=== PATIENT | female | born 1955 | race Caucasian/White ===

== ENCOUNTER 2020-09-20 11:41 | Emergency (ER) | payer MEDICARE, MEDICAID, SELFPAY ==
[2020-09-20] VITALS (16 sets, daily range): BP systolic 124–140; BP diastolic 79–95; PULSE 80–95; RESP 14–20; TEMP 36.8; O2SAT 95–98
--- NOTE | ~2020-09-20 | CT_ITS ---
EXAMINATION: CT brain wo con INDICATION: Head injury COMPARISON: 09/28/2018 TECHNIQUE: Standard unenhanced head CT. The dose-length product (DLP) was 605.33 mGy-cm. The mA was a djusted according to patient size. Iterative reconstruction technique was employed. FINDINGS: There is hyperattenuating crescentic extra-axial fluid along the right hemisphere. There ar e 1 to 2 mm of [id number] midline shift There is no acute intraparenchymal hemorrhage. No evidence of mass lesion. No evidence of acute infarction. 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 Th ere is mild periventricular and subcortical hypodensity probably related to small vessel ischemic dis ease. There is mild prominence of the sulci and ventricles related to cerebral atrophy. Intracranial calcified cerebral atherosclerosis is noted. Changes in the globes are likely from ocular lens surge ry. The visualized sinuses and mastoid air cells are well aerated. IMPRESSION: 1. Acute right subdural hematoma 1 to 2 mm of ceczj-fr-kmsy midline shift. These findings were discus sed with Dr. Francis Pino MD in the Emergency Department at 1256 hours on 09/20/2020. Reviewed, dictated and finalized at location A. IMPRESSION: 1. Acute right subdural hematoma 1 to 2 mm of [id number]-bc-[id number] midline shift. Thes e findings were discussed with Dr. Francis Pino MD in the Emergency Departme nt at 1256 hours on 09/20/2020.
--- NOTE | ~2020-09-20 | CT_ITS ---
EXAMINATION: CT cervical spine wo con DATE: 09/20/2020 12:54 INDICATION: Head injury TECHNIQUE: Computed tomography (CT) of the cervical spine was performed without intravenous contrast. The dose-length product (DLP) was 108.65 mGy-cm. Automated exposure control and iterative reconstruc tion technique were employed. COMPARISON: 09/28/2018 FINDINGS: There is no fracture, dislocation, or subluxation. Vertebral body heights are normal. There is moderate loss of intervertebral disc space height from C5-6 through C7-T1. The odontoid is intact . The prevertebral soft tissues are normal. There is moderate multilevel facet and uncovertebral join t osteoarthritis. IMPRESSION: 1. Moderate cervical spondylosis without acute findings. Reviewed, dictated and finalized at location A.
--- NOTE | 2020-09-20 11:51 | ECG_ITS ---
Measurements Intervals [place] Rate: 91 P: 76 [place]: 173 QRS: 49 QRSD: 110 T: 31 QT: 304 QTc: 374 Interpretive Statements SINUS RHYTHM FREQUENT VENTRICULAR PREMATURE COMPLEXES EARLY PRECORDIAL R/S TRANSITION BORDERLINE ST-T WAVE ABNORMALITY- ANTEROLAT/INF LEADS BASELINE ARTIFACT- I, II, III, AVR, AVL, AVF, V1-V6 ABNORMAL ECG Electronically Signed On 09-20-2020 14:20:24 CDT by Chuckie Forman D.O.
[2020-09-20 12:14] LABS: Basophils Absolute Auto 0.1 K/mm3 (0.0-0.1); Basophils Percent Auto 0.5 % (0.2-1.2); Eosinophils Percent Auto 0.4 % (0-4.4); Hematocrit 42.3 % (37.0-47.0); Hemoglobin 13.8 g/dL (12.0-15.0); Immature Granulocyte Absolute 0.09 K/mm3 (0.00-0.031); Immature Granulocyte Percent A 0.9 % (0-0.5); Lymphocytes Absolute Auto 1.47 K/mm3 (0.9-3.2); Lymphocytes Percent Auto 15.2 % (18.3-44.2); Mean Corpuscular HGB Conc 32.6 g/dl (32-36); Mean Corpuscular Volume 98.1 fl (80-100); Mean Platelet Volume 10.2 fl (7.4-10.4); Monocytes Absolute Auto 0.9 K/mm3 (0.1-0.6); Monocytes Percent Auto 9.7 % (2.6-8.5); Neutrophils Absolute Auto 7.1 K/mm3 (1.3-6.7); Neutrophils Percent Auto 73.3 % (45.5-73.1); Platelet Count Result 298 k/mm3 (150-375); Red Blood Count 4.31 M/mm3 (4.2-5.4); Red Cell Distribution Width 13.2 % (11.5-14.5); White Blood Count 9.7 K/mm3 (4.5-10.0)
[2020-09-20 12:22] LABS: Anion Gap 16 mmol/L (8-16); Blood Urea Nitrogen 13 mg/dL (7-17); Calcium 9.3 mg/dL (8.4-10.2); Carbon Dioxide 25 mmol/L (22-30); Chloride 97 mmol/L (98-107); Estimated CRCL calculation 28 ml/min; Estimated Glomerular Filt Rate 41; Glucose 79 mg/dL (65-105); Potassium 2.5 mmol/L (3.4-5.0); Sodium 138 mmol/L (137-145)
--- NOTE | 2020-09-20 13:27 | ED.FALL ---
HPI - Fall General Chief Complaint: Fall Stated Complaint: multiple falls, head injury Time Seen by Provider: 09/20/20 12:00 Source: patient and family Mode of arrival: ambulatory Limitations: no limitations History of Present Illness HPI Narrative: 64-year-old with a history of COPD, seizure disorder, hypertension was brought in by daughter with complaints of multiple falls for the past few days. Patient states that she becomes dizzy and falls backward. She fell yesterday. No loss of consciousness. This morning she was complaining of headache and nausea. Also complains of neck pain. Denies any weakness in the lower extremities. No history of chest pain or shortness of breath. complaint: fall Onset (ago): day(s) (1) Fall from: standing Fall witnessed: no Place fall occurred: home Loss of consciousness: none Symptoms prior to fall: dizziness Location of injury: head and face Severity: moderate Severity scale (1-10): 4 Quality: dull Associated symptoms (after fall): headache and neck pain Related Data Allergies Allergy/AdvReac Type Severity Reaction Status Date / Time No Known Allergies Allergy Verified 09/20/20 11:50 Review of Systems Review of Systems: All systems reviewed & are unremarkable except as noted in HPI and below Constitutional: Constitutional: Reports no additional constitutional complaints Eyes: Eyes: Reports no additional eye complaints ENT: Reports system reviewed and no additional complaints, except as documented Cardiovascular: Cardiovascular: Reports no additional cardiovascular complaints Respiratory: Respiratory: Reports no additional respiratory complaints Musculoskeletal: Musculoskeletal: Reports as per HPI Neurologic: Reports system reviewed and no additional complaints, except as documented Psychiatric: Psychiatric: Reports no additional psychiatric complaints [facility] Family History Family History Sibling Hypertension Cerebrovascular accident Social History Social History Gender identity (if verbalized by the patient): Female Exam Narrative: Exam Narrative: GENERAL: Well-appearing, thin , and in no acute distress. HEAD: Normocephalic, atraumatic.hasold abrasions on the left side of the face EYES: PERRLA and EOMI. ENT: Nares clear, no rhinorrhea or epistaxis. Mucous membranes moist. NECK: Supple.tender CHEST: Clear to auscultation. No respiratory distress. HEART: Regular rate and rhythm. No murmur heard. Normal peripheral pulses. ABDOMEN: Soft, nontender, nondistended, normal active bowel sounds. EXTREMITIES: Normal range of motion. No edema. Multiple bruises SKIN: Warm, dry, no rash. NEURO: No focal deficits. Alert and oriented x3. PSYCH: Normal mood and affect. Course Course Emergency Course: Patient is is alert oriented, complains of head and neck pain. I have discussed lab and CT findings with the patient and the family. Agreeable for transfer to [facility]. I discussed with neurosurgery Dr. Obrien agreed to see the patient in the ER. Discussed with the ER doctor who agreed patient in transfer. Vital Signs Vital signs: Vital Signs Temperature 36.8 C 09/20/20 11:48 Pulse Rate 95 09/20/20 11:48 Respiratory Rate 20 09/20/20 11:48 Blood Pressure 140/95 H 09/20/20 11:48 Pulse Oximetry 95 09/20/20 11:48 Temperature 36.8 C 09/20/20 11:48 Pulse Rate 86 09/20/20 13:02 Respiratory Rate 15 09/20/20 13:02 Blood Pressure 140/84 09/20/20 12:31 Pulse Oximetry 98 09/20/20 11:58 MDM - Fall Lab Data Result diagrams: 09/20/20 12:00 09/20/20 12:00 Labs: Lab Results 09/20/20 09/20/20 Range/Units 12:00 12:00 WBC 9.7 (4.5-10.0) K/mm3 RBC 4.31 (4.2-5.4) M/mm3 Hgb 13.8 (12.0-15.0) g/dL Hct 42.3 (37.0-47.0) % MCV 98.1 (80-100) fl MCH 32.0
== END 2020-09-20 14:50 | disposition short-term general hospital (02) ==
PROVIDERS: Emergency Provider Family Medicine; PCP Family Medicine
DX: S06.5X0A Traumatic subdural hemorrhage without loss of consciousness, initial encounter (principal); W18.30XA Fall on same level, unspecified, initial encounter; Z91.81 History of falling; E87.6 Hypokalemia
CPT/HCPCS: 36415; 70450; 72125; 80048; 85025; 93005; 96365; 96366; 99291; J3480

== ENCOUNTER 2020-09-27 11:08 | Emergency (ER) | payer MEDICARE, MEDICAID, SELFPAY ==
--- NOTE | ~2020-09-27 | CT_ITS ---
EXAMINATION: CT brain wo con DATE: 09/27/2020 14:53 INDICATION: Headache. TECHNIQUE: Computed tomography (CT) of the head was performed without intravenous contrast. The mA wa s adjusted according to patient size. Iterative reconstruction technique was employed. The dose-lengt h product was 605.33 mGy-cm. COMPARISON: Head CT 09/20/2020 FINDINGS: There is a right frontotemporal parietal subdural hematoma that is hypodense to mitchell matter measuring 13 mm in greatest thickness with mass effect on the brain. There is 9 mm leftward midline shift at the foramen of Monro. There are scattered areas of low attenuation in the cerebral white mat ter. There is a small old infarct in left frontal lobe. Right-sided uncal herniation is noted. There is no acute ischemic infarct or abnormal mass lesion. There are old infarcts in the bilateral cerebel lum. The ventricles are not dilated. There are likely changes of ocular lens replacement surgeries. T here is mild mucosal thickening in the ethmoid sinuses. The mastoid air cells are normal. IMPRESSION: 1. Subacute right-sided subdural hematoma with increase in size and worsened mass effect when compare d to 09/20/2020. 2. 9 mm leftward midline shift and right-sided uncal herniation. 3. 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 4. Stable moderate nonspecific cerebral white matter disease, which likely represents chronic small v essel ischemic disease. Reviewed, dictated and finalized at location A. IMPRESSION: 1. Subacute right-sided subdural hematoma with increase in size and worsened ma ss effect when compared to 09/20/2020. 2. 9 mm leftward midline shift and right-sided uncal herniation. 3. 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 4. Stable moderate nonspecific cerebral white matter disease, which likely repr esents chronic small vessel ischemic disease.
--- NOTE | ~2020-09-27 | CT_ITS ---
EXAMINATION: CT abdomen pelvis w con DATE: 09/27/2020 14:54 INDICATION: Abdominal pain. Hematemesis. TECHNIQUE: Computed tomography (CT) of the abdomen and pelvis was performed with 100 mL Omnipaque 350 intravenous contrast. Automated exposure control and iterative reconstruction technique were employe d. The dose-length product was 192.93 mGy-cm. COMPARISON: CT abdomen and pelvis 03/25/2016 FINDINGS: The visualized portions of the lung bases demonstrate mild atelectasis. No pleural effusion . The heart size is normal. No pericardial effusion. There is a small sliding hiatal hernia. There is mild intrahepatic biliary duct dilatation. The common duct is dilated to 12 mm. These findings are s table from 03/25/16. There are changes of cholecystectomy. The pancreatic duct is dilated to 6 mm in the head of the pancreas, stable from 03/25/16, likely chronic pancreatitis. The spleen and adrenal g lands are normal. There are cysts in the kidneys measuring up to 2.1 cm on the left. There is cortica l thinning of the kidneys. There are no dilated loops of bowel. The appendix is not visualized. There are no pathologically enlarged lymph nodes. There is no free intraperitoneal fluid. There is moderat e lumbar spondylosis. Thoracolumbar levoscoliosis is noted. IMPRESSION: 1. Small sliding hiatal hernia. Reviewed, dictated and finalized at location A.
--- NOTE | 2020-09-27 11:34 | ED.GIBLEED ---
HPI - GI Bleed General Chief complaint: Abdominal Pain Stated complaint: Vomiting, Diarrhea Time Seen by Provider: 09/27/20 11:32 Source: patient and family Mode of arrival: ambulatory Limitations: no limitations History of Present Illness HPI Narrative: Patient is a 64-year-old female with a history of COPD, hypertension, seizure disorder, psychiatric disorder, recently admitted to [facility] for an intracranial hemorrhage, who presents to our facility for evaluation of abdominal pain. Patient reports abdominal pain throughout her abdomen, described as aching and sharp in nature. Mostly located in the upper abdomen. Patient reports nausea and coffee-ground emesis. No bright red blood per sputum. No recurrent falls. No headache or vision changes. Patient reports mild shortness of breath, denies chest pain. No recent fever, rhinorrhea. Related Data Allergies Allergy/AdvReac Type Severity Reaction Status Date / Time No Known Allergies Allergy Verified 09/20/20 11:50 Review of Systems Review of Systems: Narrative: CONSTITUTIONAL: Denies fever, chills, or sweats. EYES: Denies visual changes, redness, or discharge. ENT: Denies rhinorrhea, congestion, sore throat, or otalgia. CARDIOVASCULAR: Denies chest pain, palpitations, or edema. RESPIRATORY: Reports mild shortness of breath, denies cough GASTROINTESTINAL: Reports abdominal pain, nausea and vomiting GENITOURINARY: Denies dysuria or hematuria. SKIN: Denies rash or itching. MUSCULOSKELETAL: Denies back pain, joint pain, or myalgia. NEUROLOGIC: Denies headache, numbness, denies focal weakness PMFSH Family History Family History Sibling Hypertension Cerebrovascular accident Social History Social History (Updated 09/27/20 @ 12:37 by Anaya Hobbs MD) Alcohol intake: never Substance use: never Living arrangements: with family Gender identity (if verbalized by the patient): Female Exam Narrative: Exam Narrative: GENERAL: Awake, alert, conversant, tearful HEAD: Normocephalic, atraumatic. EYES: 2+ PERRLA and EOMI. ENT: Nares clear, no rhinorrhea or epistaxis. Mucous membranes moist. NECK: Supple. CHEST: No respiratory distress, breathing even and non labored HEART: Regular rate, sinus rhythm ABDOMEN:Non distended, mildly tender to palpation, no guarding EXTREMITIES: Normal range of motion. No edema. SKIN: Warm, dry, no rash. NEURO:No focal deficits. Alert and oriented x3 Course Vital Signs Vital signs: Vital Signs Temperature 36.7 C 09/27/20 11:35 Pulse Rate 95 09/27/20 11:35 Respiratory Rate 30 H 09/27/20 11:35 Blood Pressure 178/141 H 09/27/20 11:35 Pulse Oximetry 100 09/27/20 11:35 Temperature 36.7 C 09/27/20 11:35 Pulse Rate 87 09/27/20 15:45 Respiratory Rate 15 09/27/20 15:45 Blood Pressure 162/89 H 09/27/20 15:45 Pulse Oximetry 100 09/27/20 15:45 MDM - GI Bleed MDM Narrative Medical decision making narrative: Patient presented for evaluation of intractable nausea, vomiting, headache and abdominal pain. The time of assessment, patient is mildly hypertensive. Otherwise, ABCs are intact, patient is mildly tachypneic. Airway is patent. No respiratory distress. PT given IV fluids, anti emetic and pain medication. Laboratory results notable for mild hypokalemia. No significant anemia. No acute kidney injury. Mild elevation in BNP although this may be chronic. Patient does not appear to have symptoms of fluid overloaded state or acute congestive heart failure. CT head is notable for 9 mm midline shift of subacute subdural hematoma as well as uncal herniation. No acute findings on CT abdomen/pelvis other than hiatal hernia. No obstruction noted. No urinary tract infection. I called over to [facility], the on-call neurosurgeon reviewed the patient's CT imaging from today and states that it is worsened
[2020-09-27 11:35] VITALS: BP 178/141; PULSE 95; RESP 30; TEMP 36.7; O2SAT 100
[2020-09-27 11:59] VITALS: BP 152/77; PULSE 70; RESP 27; O2SAT 100
--- NOTE | 2020-09-27 12:32 | ECG_ITS ---
Measurements Intervals [place] Rate: 88 P: 70 [place]: 146 QRS: 26 QRSD: 90 T: 56 QT: 379 QTc: 461 Interpretive Statements SINUS RHYTHM WITH SINUS ARRHYTHMIA POSSIBLE RIGHT ATRIAL ENLARGEMENT LEFT ATRIAL ENLARGEMENT LOW QRS VOLTAGE IN PRECORDIAL LEADS BASELINE ARTIFACT- I, II, III, AVR, AVL, AVF, V1-V6 BORDERLINE ECG Electronically Signed On 09-27-2020 19:23:20 CDT by Chuckie Forman D.O.
[2020-09-27] MEDS: ONDANSETRON INJ 4 MG/2 ML VIAL IV PUSH ×2 (13:16→16:11)
[2020-09-27] MEDS: SODIUM CHLORIDE 0.9% IV 1,000 ML 999 ML IV CONT (13:17)
[2020-09-27] MEDS: MORPHINE SULFATE (*CRX) 4 MG/ML INJ IV PUSH (13:18)
[2020-09-27 13:22] LABS: Basophils Percent Auto 0.3 % (0.2-1.2); Hematocrit 41.3 % (37.0-47.0); Hemoglobin 13.8 g/dL (12.0-15.0); Immature Granulocyte Absolute 0.11 K/mm3 (0.00-0.031); Immature Granulocyte Percent A 1.1 % (0-0.5); Lymphocytes Absolute Auto 1.41 K/mm3 (0.9-3.2); Lymphocytes Percent Auto 14.2 % (18.3-44.2); Mean Corpuscular HGB Conc 33.4 g/dl (32-36); Mean Corpuscular Hemoglobin 32.2 pg (26-34); Mean Corpuscular Volume 96.3 fl (80-100); Mean Platelet Volume 9.8 fl (7.4-10.4); Monocytes Absolute Auto 0.7 K/mm3 (0.1-0.6); Monocytes Percent Auto 6.6 % (2.6-8.5); Neutrophils Absolute Auto 7.7 K/mm3 (1.3-6.7); Neutrophils Percent Auto 77.8 % (45.5-73.1); Platelet Count Result 466 k/mm3 (150-375); Red Blood Count 4.29 M/mm3 (4.2-5.4); Red Cell Distribution Width 14.2 % (11.5-14.5); White Blood Count 9.9 K/mm3 (4.5-10.0)
[2020-09-27 13:30] VITALS: BP 150/62; PULSE 75; RESP 21; O2SAT 100
[2020-09-27 13:32] LABS: Prothrombin Time 13.8 Seconds (11.1-14.7)
[2020-09-27 13:33] LABS: Partial Thromboplastin Time 25.8 SECONDS (22.3-36.8)
[2020-09-27 13:40] LABS: Lactic Acid Reflex 1.5 mmol/L (0.7-2.1)
[2020-09-27 13:48] LABS: NT Pro B Type Natriuretic Pept 2700 pg/mL (5-100)
[2020-09-27 14:31] LABS: Alanine Aminotransferase 12 U/L (4-35); Albumin Level 3.8 g/dL (3.5-5.1); Alkaline Phosphatase 138 U/L (38-126); Anion Gap 13 mmol/L (8-16); Aspartate Amino Transferase 26 U/L (14-36); Bilirubin,Total 0.6 mg/dL (0.2-1.3); Blood Urea Nitrogen 18 mg/dL (7-17); Calcium 9.5 mg/dL (8.4-10.2); Carbon Dioxide 18 mmol/L (22-30); Chloride 111 mmol/L (98-107); Estimated CRCL calculation 39 ml/min; Estimated Glomerular Filt Rate > 60; Glucose 99 mg/dL (65-105); Lipase 56 U/L (23-300); Potassium 3.1 mmol/L (3.4-5.0); Sodium 142 mmol/L (137-145)
[2020-09-27 14:41] LABS: Troponin I 0.018 ng/mL (0.000-0.034)
[2020-09-27 14:45] LABS: Add Urine Microscopic? YES; Appearance Urine Clear (Clear); Bilirubin Urine Negative (Negative); Blood Urine 1+ (Negative); Color Urine Yellow (Yellow); Glucose Urine UA Negative (Negative); Ketones Urine 2+ mg/dL (Negative); Leukocyte Esterase Ur Negative LEU/UL (Negative); Mucus Urine Rare /lpf; Nitrate Urine Negative (Negative); Protein Urine 2+ mg/dL (Negative); RBC Urine 0-2 /hpf (0-2); Specific Grav Ur 1.021 (1.001-1.035); Squamous Epithelial Cell Urine Many /hpf (Few); Urobilinogen Urine Negative mg/dL (<2.0); WBC Urine 0-3 /hpf
[2020-09-27 15:45] VITALS: BP 162/89; PULSE 87; RESP 15; O2SAT 100
[2020-09-27] MEDS: MORPHINE SULFATE (*CRX) 2 MG/ML INJ IV PUSH (16:12)
[2020-09-27] MEDS: FAMOTIDINE 20 MG/2 ML VIAL IV PUSH (16:13)
[2020-09-27 17:59] VITALS: BP 162/107; PULSE 81; RESP 18; O2SAT 96
== END 2020-09-27 18:37 | disposition short-term general hospital (02) ==
PROVIDERS: Emergency Provider Emergency Medicine; PCP Family Medicine
DX: I62.02 Nontraumatic subacute subdural hemorrhage (principal); G93.5 Compression of brain; R11.2 Nausea with vomiting, unspecified; I10 Essential (primary) hypertension; J44.9 Chronic obstructive pulmonary disease, unspecified; G40.909 Epilepsy, unspecified, not intractable, without status epilepticus; R90.82 White matter disease, unspecified; E87.6 Hypokalemia; K44.9 Diaphragmatic hernia without obstruction or gangrene; R94.31 Abnormal electrocardiogram [ECG] [EKG]
CPT/HCPCS: 36415; 70450; 74177; 80053; 81001; 83605; 83690; 83880; 84484; 85025; 85610; 85730; 93005; 96361; 96374; 96375; 96376; 99284; 99285; J2270; J2405; J7030; Q9967